=== PATIENT | female | born 1945 | race African-American/Black ===

== ENCOUNTER 2019-11-01 05:03 | Inpatient (IN) | payer MEDICARE ==
[~2019-11-01] VITALS: Ht 170.2 cm; Wt 71.2 kg
[2019-11-01] VITALS (9 sets, daily range): BP systolic 119–156; BP diastolic 80–106
--- NOTE | 2019-11-01 05:05 | NUR ---
ED Nurse Note: PT BROUGHT IN BY RA 34 FROM HOME C/O CHEST PAIN X1DAY. NITRO X2, 325 ASA GIVEN EN ROUTE BY EMS. PT STATES 5/10 SHARP PAIN AND ALSO REPORTS SOME LIGHTHEADEDNESS. AAOX4, AMBULATORY, VSS, NAD. ERMD AT BEDSIDE
[2019-11-01] MEDS ORDERED: ASPIRIN81 M3 PO (05:08)
[2019-11-01] MEDS ORDERED: METOPROLOL SUCC25 MG ORAL (05:08)
[2019-11-01] MEDS ORDERED: LOSARTAN POTASS25 MG ORAL (05:08)
--- NOTE | 2019-11-01 05:10 | NUR ---
ED Nurse Note: IV ESTABLISHED BY EMS VIA LEFT HAND 20G. LINE PATENT AND INTACT. BLOOD DRAWN AND SENT TO LAB
--- NOTE | 2019-11-01 05:14 | Emergency Room Report ---
History of Present Illness General Chief Complaint: Chest Pain Source: Patient Present Illness HPI This is an elderly 74-year-old female with history of high blood pressure. She presents with chief complaint of palpitation and chest pain. Onset all day. She could not sleep tonight because when she lays down she felt short of breath. She also said that her blood pressure was very high in the triple digit and heart rate was racing. She had similar symptoms 8 years ago. She is not currently taking any blood thinner. She also complained of chest pressure and chest pain. Localized to the left chest area. No radiation. No nausea no vomiting. No fever chills. Electrical Systems Design Engineer gave her aspirin and nitroglycerin. She still say that she felt irregular heartbeat and short of breath. I also spoke with the for further information. He said that there is no history of atrial fibrillation. Patient went to [facility] about 3 years ago and was told that she has some scarring or damage to part of her heart. Allergies: Coded Allergies: No Known Allergies (Unverified , 11/01/19) COVID-19 Screening Contact w/high risk pt: No Recent Travel to affected area: No Experienced COVID-19 symptoms?: No Patient History Past Medical History: see triage record, old chart reviewed, HTN Past Surgical History: other Pertinent Family History: none Social History: Denies: smoking Last Menstrual Period: n/a Now: No Reviewed Nursing Documentation: PMH: Agreed; PSxH: Agreed Nursing Documentation-PMH Hx Hypertension: Yes Review of Systems Eye: Denies: eye pain, blurred vision ENT: Denies: ear pain, nose congestion, throat swelling Respiratory: Reports: shortness of breath; Denies: cough Cardiovascular: Reports: chest pain, palpitations Gastrointestinal: Denies: abdominal pain, diarrhea, nausea, vomiting Musculoskeletal: Denies: back pain, joint pain Skin: Denies: rash Neurological: Denies: headache, numbness Endocrine: Denies: increased thirst, increased urine Hematologic/Lymphatic: Denies: easy bruising All Other Systems: negative except mentioned in HPI Physical Exam Vital Signs Date Time Temp Pulse Resp B/P (MAP) Pulse Ox O2 Delivery O2 Flow Rate FiO2 11/01/19 05:00 100 16 186/137 (153) 94 Room Air Vitals with hypertension Sp02 EP Interpretation: reviewed, normal General Appearance: well appearing, no apparent distress, alert Head: normocephalic, atraumatic Eyes: bilateral eye PERRL, bilateral eye EOMI ENT: hearing grossly normal, normal pharynx Neck: full range of motion, supple, no meningismus Respiratory: chest non-tender, normal breath sounds, rales - At the lower bases Cardiovascular #1: no murmur, irregularly irregular Gastrointestinal: normal bowel sounds, non tender, no mass, no organomegaly, no bruit, non-distended Musculoskeletal: back normal, normal range of motion, gait/station normal Psychiatric: mood/affect normal Procedures Critical Care Time Critical Care Time Critical care is mandated in this patient who presented with A. fib and NSTEMI. Patient require my urgent intervention to attenuate the risks of metabolic collapse which may lead to cardiovascular collapse and . Critical care time is 35 minutes excluding any reportable procedure. Critical care time included evaluation, multiple reevaluation, looking at old charts, interpreting laboratory and diagnostic data, discussing case with patient and family and consultants, and charting. Medical Decision Making Diagnostic Impression: Primary Impression: NSTEMI (non-ST elevated myocardial infarction) Additional Impressions: New onset atrial fibrillation Hypertension Qualified Codes: I10 - Essential (primary) hypertension UTI (urinary tract infection) Qualified Codes: N30.00 - Acute cystitis without hematuria CHF (congestive heart failure) Qualified Codes: I50.9 - Heart failure, unspecified ER Course Patient presents with new onset A. fib with chest pain and accelerated hypertension. Troponin is positive. Patient received aspirin and nitro by EMS already. She has no pain here. Lovenox added here. Based on her age and risk factors, will admit for further work-up. EKG Diagnostic Results Rate: normal Rhythm: other - atrial fib ST Segments: other - NSST changes Rhythm Strip Diag. Results EP Interpretation: yes Rate: 98 Rhythm: no PVC's, no ectopy, other - afib Chest X-Ray Diagnostic Results Chest X-Ray Diagnostic Results : Chest X-Ray Ordered: Yes # of Views/Limited/Complete: 1 View Indication: Chest Pain EP Interpretation: Yes Interpretation: no effusion, no pneumothorax, other - CM with mild congestion Impression: Other - CM Electronically Signed by: Donnell Bennett MD Last Vital Signs Date Time Temp Pulse Resp B/P (MAP) Pulse Ox O2 Delivery O2 Flow Rate FiO2 11/01/19 05:00 100 16 186/137 (153) 94 Room Air Status: improved Disposition: ADMITTED INPATIENT Condition: Critical Scripts Furosemide* (LASIX*) 40 Mg Tablet 40 MG ORAL DAILY for 10 Days, #10 TAB Prov: Arthur Fraser MD 11/02/19 Enoxaparin* (LOVENOX*) 80 Mg/0.8 Ml Inj 70 MG SUBQ EVERY 12 HOURS for 10 Days, #20 EA Prov: Arthur Fraser MD 11/02/19 Donnell Bennett MD November 01, 2019 05:14
--- NOTE | 2019-11-01 05:18 | NUR ---
ED Nurse Note: XR AT BEDSIDE
[2019-11-01 05:23] LABS: BASOPHILS % (AUTO) 2.4 % (0.0-2.0); EOSINOPHILS % (AUTO) 1.4 % (0.0-3.0); HEMATOCRIT 39.5 % (37.0-47.0); HEMOGLOBIN 12.9 G/DL (12.0-16.0); LYMPHOCYTES % (AUTO) 35.3 % (20.0-45.0); MEAN CORPUSCULAR VOLUME 85 FL (80-99); MONOCYTES % (AUTO) 9.1 % (1.0-10.0); NEUTROPHILS % (AUTO) 51.8 % (45.0-75.0); PLATELET COUNT 136 K/UL (150-450); RED BLOOD COUNT 4.63 M/UL (4.20-5.40); RED CELL DISTRIBUTION WIDTH 12.7 % (11.6-14.8); WHITE BLOOD COUNT 5.9 K/UL (4.8-10.8)
--- NOTE | 2019-11-01 05:25 | NUR ---
ED Nurse Note: URINE COLLECTED AND SENT TO LAB
[2019-11-01 05:35] LABS: APPEARANCE,URINE CLEAR; BILIRUBIN, URINE NEGATIVE (NEGATIVE); GLUCOSE, URINE (UA) NEGATIVE (NEGATIVE); KETONES,URINE NEGATIVE (NEGATIVE); LEUKOCYTE ESTERASE ,URINE 2+ (NEGATIVE); NITRITE,URINE NEGATIVE (NEGATIVE); PH,URINE 5 (4.5-8.0); PROTEIN,URINE 3+ (NEGATIVE); UROBILINOGEN,URINE NORMAL MG/DL (0.0-1.0)
[2019-11-01 05:36] LABS: COLOR,URINE YELLOW
--- NOTE | 2019-11-01 05:36 | NUR ---
ED Nurse Note: Patient helped in to a gown and belongings placed in a belongings bag.
[2019-11-01 05:38] LABS: ANION GAP 10 mmol/L (5-15); BLOOD UREA NITROGEN 21 mg/dL (7-18); CARBON DIOXIDE 27 MMOL/L (21-32); CHLORIDE 107 MMOL/L (98-107); CREATININE 1.1 MG/DL (0.55-1.30); POTASSIUM 3.6 MMOL/L (3.5-5.1); SODIUM 143 MMOL/L (136-145)
[2019-11-01] MEDS ORDERED: cefTRIAXone 1 GM in NS 55 ML IVPB ONE (05:45)
[2019-11-01 05:48] LABS: ALANINE AMINOTRANSFERASE 63 U/L (12-78); ALBUMIN 3.5 G/DL (3.4-5.0); ALBUMIN/GLOBULIN RATIO 0.8 (1.0-2.7); ALKALINE PHOSPHATASE 95 U/L (46-116); ASPARTATE AMINO TRANSFERASE 76 U/L (15-37); BILIRUBIN,TOTAL 1.1 MG/DL (0.2-1.0)
[2019-11-01 05:51] LABS: INR 1.1 (0.9-1.1)
[2019-11-01 06:08] LABS: BILIRUBIN,DIRECT 0.3 MG/DL (0.0-0.3)
[2019-11-01] MEDS ORDERED: Enoxaparin 60mg Inj SUBQ ONE (06:15)
--- NOTE | 2019-11-01 07:01 | NUR ---
HAND-OFF: Report given to Mariesla ARANDA. Endorsed plan of care.
--- NOTE | 2019-11-01 07:02 | NUR ---
ED Nurse Note: Pt report received from MANOJ Damon. pt shows NAD. vss. iv sites patent and intact.
--- NOTE | 2019-11-01 07:33 | NUR ---
ED Nurse Note: telephone report given to MANOJ carrillo
--- NOTE | 2019-11-01 07:40 | NUR ---
TRANSFER TO FLOOR: Patient transferred to tele as ordered, per ermd. Report given to samaria carirllo. Belongings given pt and receiving nurse.
--- NOTE | 2019-11-01 08:16 | NUR ---
NURSE NOTES: Pt arrived at the unit. Received report from MARY Maria RN. Pt A/Ox4, ambulates steady. Per ER nurse, pt was not tested for covid because pt does not have any respiratory s/sx. Pt breathing even and unlabored in 2L NC, denies any pain or discomfort, no s/sx of acute distress. Tele monitor attached to the pt, vital signs checked (BP 144/97, HR 81, RR 19, 98% O2 sat). Physical assessment performed. Will call Dr Fraser to obtain admission orders.
--- NOTE | 2019-11-01 09:02 | Diagnostic Imaging Report ---
Indication: Shortness of breath Technique: One view of the chest Comparison: none Findings: The heart is enlarged. There is equivocal mild pulmonary venous congestion. No focal airspace consolidation. No definite effusions. Impression: Cardiomegaly. Equivocal mild pulmonary venous congestion. Correlate with clinical findings
--- NOTE | 2019-11-01 09:44 | NUR ---
*-* NO INSURANCE INFORMATION IN THE BAR UNABLE TO SEND CLINICALS OR REVIEWS *-*
--- NOTE | 2019-11-01 10:01 | NUR ---
CASE MANAGEMENT:REVIEW 74 YR OLD FEMALE BIBA FROM HOME CC: CHEST PAIN AND LIGHTHEADEDNESS SI: NEW AFIB. CHF. NSTEMI. UTI 98.5 100 16 186/137 94% ON RA TROPONIN(+) 8.925 BNP+3454 IS: ASA PO GIVEN POWER SHOVEL MECHANIC NITRO GIVEN POWER SHOVEL MECHANIC PLACED ON 2L/NC IV LASIX X1 LOVENOX SQ X1 IV HYDRALAZINE X1 IV ROCEPHIN X1 CHEST XRAY : TO TELEMETRY UNIT
--- NOTE | 2019-11-01 10:15 | NUR ---
NURSE NOTES: Left a voice message to Dr Fraser's office to get admission order. Awaiting for a call back.
--- NOTE | 2019-11-01 10:30 | NUR ---
NURSE NOTES: Dr Fraser came to see the pt. Per MD, order cardiac diet for the pt and MD will add the rest of the orders in. Addendum: 11/01/19 at 1322 by Porsha Rod RN Called Dr Fraser to remind him about the admission orders. No answer, left a voicemail. Awaiting for a callback.
--- NOTE | 2019-11-01 14:20 | NUR ---
NURSE NOTES: Recvd a call from a Dr Anguiano from [facility], Md Fraser and Martha have been in contact with Dr Anguiano to have the patient sent to cardiac cath once bed is available. Case Management/Insurance called for Dr Anguiano inquiring patient isolation and bed size. Pt can be discharged anytime a bed is available to cardiac cath hospital...
[2019-11-01] MEDS: Furosemide 40mg tab ORAL SCH (14:42)
--- NOTE | 2019-11-01 15:59 | NUR ---
*-* INSURANCE *-* ALL CLINICALS AND REVIEWS HAVE BEEN FAXED TO: [facility] JOSE FRANCISCO:DAVID [phone] FAX [phone] Work
[2019-11-01] MEDS ORDERED: Metoprolol Tartrate 5mg/5ml Inj IVP SCH (16:10)
[2019-11-01] MEDS ORDERED: Metoprolol Tartrate 50mg tab ORAL SCH (16:21)
--- NOTE | 2019-11-01 16:22 | NUR ---
DISCHARGE PLANNING- PATIENT NEEDS TO BE TRANSFERRED FOR HIGHER LEVEL OF CARE CALLED HCP @ T: [phone] SPOKE WITH MUSIC PUBLICIST MERLY REGARDING TRANSFER PER MERLY HER SUPERVISORY LIFEGUARD WILL BE CONTACTED REGARDING THE TRANSFER AT [place] AN MD TO MD CONVERSATION WILL NEED TO TAKE PLACE PROVIDED NUMBERS FOR NURSES STATION, DR VARELA AND DR HOPE
--- NOTE | 2019-11-01 16:38 | NUR ---
INSTRUMENT AND CONTROL SERVICE PERSON NOTE CALL RECEIVED FROM MERLY RUBIN WITH HCP TO PROVIDE AFTER HOURS PHONE NUMBER [phone] INFORMED THIS CM THAT THEY WILL CONTINUE TO WORK ON TRANSFERRING PATIENT TO HIGHER LEVEL OF CARE ONCE THEY SECURE AN ACCEPTING HOSPITAL. HCP WILL CONTACT TELE UNIT WHEN TRANSFER HAS BEEN COORDINATED.
[2019-11-01] MEDS: Aspirin EC 325mg tab ORAL SCH (17:22)
[2019-11-01] MEDS: Nitroglycerin 2% oint pkt TOPIC SCH (17:23)
--- NOTE | 2019-11-01 19:58 | NUR ---
HAND-OFF: Report given to MANOJ Carr. Pt in stable condition, endorsed plan of care. Endorsed recently added medication that is due (K-Chloride). Per RN, she will administer it.
--- NOTE | 2019-11-01 20:00 | NUR ---
NURSE NOTES: Received report and endorsement of care from Porsha Morales RN. Pt in stable condition, denies pain. No signs or symptoms of distress noted at this time. Will continue plan of care and monitor closely.
[2019-11-01] MEDS: Enoxaparin 80mg Inj SUBQ SCH (21:00)
[2019-11-01] MEDS ORDERED: Heparin 5000 units/ml inj SUBQ SCH (21:00)
--- NOTE | 2019-11-01 21:29 | History and Physical Report ---
DATE OF ADMISSION: 11/01/2019 HISTORY OF PRESENT ILLNESS: This is a very pleasant 74-year-old female who came to the emergency room early this morning with complaints of chest pain. Patient reports that she is having chest pain for the last 24 hours and at that time, the pain seems to have decreased. Patient was seen and worked up in the ER, found to have elevated troponin. She was also found to have pulmonary edema. She is admitted to the hospital for subsequent management and care. Patient reports a chronic history of atrial fibrillation and hypertension. She states that she has had a cardiac stress test more than 10 years ago. ALLERGIES: None. HOME MEDICATIONS: Include metoprolol, losartan, and aspirin. She is not on a blood thinner. SURGERIES: None reported. REVIEW OF SYSTEMS: Denies any headaches, hematemesis, melena, hematochezia, or weight loss. SOCIAL HISTORY: None. PHYSICAL EXAMINATION: GENERAL: Reveals a 74-year-old female. HEENT: Unremarkable. LUNGS: Clear breath sounds bilaterally. ABDOMEN: Soft. NEUROLOGIC: Nonfocal. VITAL SIGNS: Blood pressure is 130/80, heart rate is 104, respirations 18, O2 saturation 98% on 2 L of oxygen. LABORATORY DATA: Lab testing shows chemistry notable for troponin 8.9. Otherwise, remainder of laboratories are unremarkable. Urinalysis negative. IMAGING STUDIES: X-ray chest obtained, which shows cardiomegaly with questionable mild pulmonary edema. EKG shows normal sinus rhythm. IMPRESSION: 1. Mild pulmonary edema. 2. AFib with RVR. 3. Elevated troponin. PLAN: Admit to the hospital. Check serial troponins. Rate control. Cardiac consultation. Serial troponins. Cardiac diet. May need cardiac catheterization at some point in the near future. We will also diurese. Arthur Fraser M.D. DR: KASSY JOB#: [id number] CC:
[2019-11-01] MEDS: Metoprolol Tartrate 50mg tab ORAL SCH (22:09)
[2019-11-02] VITALS: BP 132/91
--- NOTE | 2019-11-02 01:44 | Consultation ---
DATE OF CONSULTATION: 11/01/2019 CARDIOLOGY CONSULTATION Critical Care 80mins CONSULTING PHYSICIAN: Ruddy Thomas MD. REFERRING PHYSICIAN: Arthur Fraser MD. REASON: Elevated troponin level. HISTORY OF PRESENT ILLNESS: This is a 74-year-old female. She has a history of chronic atrial fibrillation and hypertension. She has been stable on medical therapy for over 8 years. She stated last night that she started feeling short of breath and chest pressure. Symptoms were unprovoked. No other constitutional symptoms were noted. She took an extra dose of her medication, metoprolol, but did not feel better. She came to the hospital emergency room. Her electrocardiogram revealed atrial fibrillation with nonspecific ST-T wave changes. Troponin level was 8.9. Hospitalization was initiated. Patient notes that her chest pain resolved soon after admission. The patient states that at she had a cardiac catheterization at [facility] approximately 8 years ago and at that time no intervention was recommended. The patient has atrial fibrillation, but does not take anticoagulant therapy and does not know why she was not prescribed them. She denies any history of bleeding problems. PAST MEDICAL HISTORY: As noted above. ALLERGIES: None. MEDICATIONS: Reviewed. SOCIAL HISTORY: Negative for smoking, alcohol, or substance abuse. REVIEW OF SYSTEMS: A 10-point review of systems performed. All systems negative other than noted above. PHYSICAL EXAMINATION: VITAL SIGNS: Her initial blood pressure in the emergency room was 186/137, heart rate 100, and respiratory rate 16. Presently at the time of my evaluation blood pressure 141/93, heart rate 113, respiratory rate 20. Monitored rhythm atrial fibrillation. NECK: Jugular venous pressure normal. LUNGS: With no wheezing or rales. CARDIAC: Irregularly irregular. Normal S1, S2. Point of maximum impulse sustained. A 1/6 systolic murmur at apex. ABDOMEN: Soft. EXTREMITIES: No edema. LABORATORY DATA: BUN 21, creatinine 1.1, potassium 3.6. Troponin #1 8.9. Troponin #2 6.8. Pro natriuretic peptide is 3454. White count 5.9, hemoglobin 12.9. Chest x-ray revealed mild pulmonary venous congestion and cardiomegaly. Echocardiogram revealed global hypokinesis with ejection fraction of approximately 45% with mild mitral regurgitation (preliminary report). IMPRESSION: 1. Acute myocardial infarction. 2. Acute on chronic diastolic congestive heart failure. 3. Atrial fibrillation, chronic and rate controlled. 4. Hypertensive heart disease with elevated blood pressure range. PLAN: 1. Full anticoagulation with subcutaneous Lovenox. 2. Advance beta-fazal. 3. Cautious diuresis. 4. Replace potassium. 5. Topical nitrates. 6. We will arrange transfer to higher level of care for coronary angiography. 20 mins spent contacting MD at contracted facility to discuss patient's status and need for transfer to a higher level of care. Ruddy Thomas M.D. DR: FRANK JOB#: [id number] CC: TOMER
[2019-11-02 04:00] VITALS: BP 135/90
[2019-11-02] MEDS: Nitroglycerin 2% oint pkt TOPIC SCH ×2 (06:08→13:01)
--- NOTE | 2019-11-02 07:36 | NUR ---
HAND-OFF: Report given to Gretel Shafer RN. Pt in stable condition. No signs or symptoms of distress noted at this time.
--- NOTE | 2019-11-02 07:37 | NUR ---
NURSE NOTES: Received patient in bed awake. O2 via NC placed back on patient, no SOB or acute distress. IV lines intact and patent. HOB elevated. Bed locked in lowest position. Call light within reach. Will continue plan of care.
[2019-11-02 08:00] VITALS: BP 158/94
[2019-11-02] MEDS: Furosemide 40mg tab ORAL SCH (08:52)
[2019-11-02] MEDS: Aspirin EC 325mg tab ORAL SCH (08:55)
[2019-11-02] MEDS: Metoprolol Tartrate 50mg tab ORAL SCH (08:55)
[2019-11-02] MEDS: Enoxaparin 80mg Inj SUBQ SCH (08:57)
[2019-11-02] MEDS ORDERED: Losartan 50mg tab ORAL SCH ×2 (09:00)
[2019-11-02] MEDS ORDERED: Aspirin EC 325mg tab ORAL SCH (09:00)
[2019-11-02 09:55] LABS: ANION GAP 10 mmol/L (5-15); BLOOD UREA NITROGEN 21 mg/dL (7-18); CALCIUM 9.2 MG/DL (8.5-10.1); CARBON DIOXIDE 27 MMOL/L (21-32); CHLORIDE 110 MMOL/L (98-107); SODIUM 146 MMOL/L (136-145)
--- NOTE | 2019-11-02 11:27 | Pulmonology Progress Note ---
Subjective Interval Events: Chest pain free; feelin better Constitutional: Reports: no symptoms HEENT: Repors: no symptoms Respiratory: Reports: no symptoms Cardiovascular: Reports: no symptoms Gastrointestinal/Abdominal: Reports: no symptoms Genitourinary: Reports: no symptoms Allergies: Coded Allergies: No Known Allergies (Unverified , 11/01/19) Objective Last 24 Hour Vital Signs Date Time Temp Pulse Resp B/P (MAP) Pulse Ox O2 Delivery O2 Flow Rate FiO2 11/02/19 09:26 111 11/02/19 08:55 158/94 11/02/19 08:55 118 158/94 11/02/19 08:00 97.2 118 16 158/94 (115) 98 11/02/19 06:08 135/90 11/02/19 04:00 98.1 98 19 135/90 (105) 98 11/02/19 04:00 96 11/02/19 00:00 85 11/02/19 00:00 97.7 99 19 132/91 (105) 96 11/01/19 22:09 91 149/100 11/01/19 21:00 Nasal Cannula 2.0 11/01/19 20:00 98.2 91 19 149/100 (116) 95 11/01/19 20:00 90 11/01/19 17:23 141/93 11/01/19 17:22 113 141/93 11/01/19 16:00 98.2 113 20 141/93 (109) 98 11/01/19 15:45 99 11/01/19 12:28 93 11/01/19 12:00 97.7 106 19 130/80 (97) 98 Intake and Output 11/01/19 11/02/19 19:00 07:00 Output Total 0 ml Balance 0 ml Output Urine Total 0 ml # Voids 2 General Appearance: no acute distress HEENT: normocephalic Respiratory/Chest: chest wall non-tender, lungs clear Cardiovascular: normal peripheral pulses, normal rate Abdomen: normal bowel sounds Laboratory Tests 11/01/19 17:13: Troponin I 6.872H 11/02/19 05:55: Troponin I 4.917H, Sodium Level 146H, Potassium Level 4.0, Chloride Level 110H, Carbon Dioxide Level 27, Anion Gap 10, Blood Urea Nitrogen 21H, Creatinine 1.0, Estimat Glomerular Filtration Rate > 60, Glucose Level 97, Calcium Level 9.2, Magnesium Level 2.0, Thyroid Stimulating Hormone (TSH) 0.460 Current Medications Medications (Trade) Dose Ordered Sig/Goran Route PRN Reason Start Time Stop Time Status Last Admin Dose Admin Acetaminophen (Tylenol) 650 mg Q4H PRN ORAL Mild Pain (Pain Scale 1-3) 11/01/19 14:15 12/01/19 14:14 11/01/19 23:37 Aspirin (Ecotrin) 325 mg DAILY ORAL 11/01/19 16:15 12/16/19 16:14 11/02/19 08:55 Dextrose (Dextrose 50%) 25 ml Q30M PRN IV Hypoglycemia 11/01/19 14:15 01/30/20 14:14 Dextrose (Dextrose 50%) 50 ml Q30M PRN IV Hypoglycemia 11/01/19 14:15 01/30/20 14:14 Enoxaparin Sodium (Lovenox) 70 mg EVERY 12 HOURS SUBQ 11/01/19 21:00 01/30/20 20:59 11/01/19 21:00 Furosemide (Lasix) 40 mg DAILY ORAL 11/01/19 14:30 12/01/19 14:29 11/02/19 08:52 Losartan Potassium (Cozaar) 100 mg DAILY ORAL 11/02/19 09:00 12/02/19 08:59 11/02/19 08:55 Metoprolol Tartrate (Lopressor) 50 mg EVERY 12 HOURS ORAL 11/01/19 21:00 01/30/20 20:59 11/02/19 08:55 Nitroglycerin (Nitro-Bid) 1 inch TID@0600,1200,1800 TOPIC 11/01/19 18:00 12/01/19 17:59 11/02/19 06:08 Assessment/Plan Assessment/Plan IMPRESSION: 1. Mild pulmonary edema. 2. AFib with RVR. 3. Elevated troponin. PLAN: A Seen by cardiology Troponin trending down Rate control. Cardiac consultation noted. Cardiac diet. Will transfer to [facility] Will need cardiac catheterization Continue diurese. Dayday Yuenzi,Arthur Martin MD November 02, 2019 11:27
[2019-11-02] MEDS ORDERED: FUROSEMIDE40 MG ORAL (11:29)
[2019-11-02] MEDS ORDERED: LOVENOX10 M2 SUBQ (11:29)
[2019-11-02 12:00] VITALS: BP 148/96
[2019-11-02 16:00] VITALS: BP 144/105
--- NOTE | 2019-11-02 17:36 | NUR ---
NURSE NOTES: Patient for transfer to [facility] for cardiac catheterization. Report given to Nancy. ID band removed. IV lines kept intact. Tele box removed. Belongings accounted for. No new skin issues noted. Discharge instructions given, verbalized understanding. Transported via ambulance in stable condition.
[2019-11-02] MEDS ORDERED: Metoprolol Tartrate 50mg tab ORAL SCH (21:00)
--- NOTE | 2019-11-03 00:29 | Progress Note ---
CARDIOLOGY Critical Care 50 mins DATE: 11/02/2019 SUBJECTIVE: The patient has had no episodes of recurring chest pain since admission yesterday afternoon. She does feel somewhat SOB. Monitored rhythm remains atrial fibrillation, mostly rate controlled. Occasional PVC's noted. EKG reveals no acute ST-T wave changes. OBJECTIVE: VITAL SIGNS: Blood pressure 148/96, heart rate 90, respiratory 16. LUNGS: Bilateral breath sounds. CARDIAC: Irregularly irregular rhythm. Normal S1, S2. ABDOMEN: Soft. EXTREMITIES: There is no edema. Troponin down to 4.9, potassium 4, sodium 146, bicarb 27, BUN 21, creatinine 1, lipid panel pending. IMPRESSION: 1. Acute myocardial infarction, erf-LW-bledilmmi type. 2. Chronic atrial fibrillation, mostly rate controlled, with ventricular ectopy. 3. Hypertensive heart disease with elevated blood pressure range at this time. PLAN: Continue anti-platelet and anticoagulant therapies. Advance antihypertensive regimen. Maintenance diuretic dosing. Continue current anti-anginal regimen. Critical care transfer arrangements are in progress to a higher level of care for coronary angiography and assessment of coronary anatomy. 15 mins spent again contacting receiving facility to update on patient's condition and need for transfer to higher level of care. Ruddy Thomas M.D. DR: ADEOLA JOB#: [id number] CC: TOMER
--- NOTE | 2019-11-04 11:50 | NUR ---
*-* INSURANCE *-* UPDATED CLINICALS HAVE BEEN FAXED NO D/C SUMMARY IN THE SYSTEM: [facility] JULISAM:DAVID [phone] FAX [phone] Work Addendum: 11/05/19 at 1104 by ROGER RICE [facility] Ref# [id number] ph#[phone] fax#[phone]
--- NOTE | 2019-11-05 13:32 | Discharge Summary ---
Discharge Summary Discharge Summary _ DATE OF ADMISSION: 11/01/2019 DATE OF DISCHARGE: [11/02/2019] DISCHARGED BY: Dr. Fraser REASON FOR ADMISSION: 74 years old female with past medical history of hypertension , presented with chief complaint of chest pain and palpitations for 1 day. Patient was unable to sleep because she was unable to lie down and felt short of breath. Patient reported very high blood pressure . She also felt like her heart was racing. Patient reported similar symptoms 8 years ago. Patient was not on any blood thinner medication. Chest pain reported to be pressure-like, localized to the left chest area , without radiation. No fever or chills. No nausea or vomiting. En route to the hospital patient received aspirin and nitroglycerin. Upon evaluation blood pressure was 196/137. Chest x-ray revealed cardiomegaly with mild congestion Troponin 8.925 ,pro BNP 3454 . Stable renal parameters and electrolytes. EKG revealed atrial fibrillation with heart rate of 98 / Patient started on Lovenox and admitted to telemetry floor for further management. CONSULTANTS: membership correspondent [facility] COURSE: Patient admitted to telemetry floor. Lead Game Designer followed. Echocardiogram revealed global left ventricular hypokinesis with estimated left ventricular ejection fraction of 45%. Mild left ventricular hypertrophy . Moderate aortic regurgitation and severe mitral regurgitation. Right ventricular systolic pressure of 49 consistent with a moderate pulmonary hypertension. Patient was on full anticoagulation with Lovenox. Beta-blockade provided. Patient started on cautious diuresis. Potassium was replaced. Topical nitrates provided. Antianginal regimen continued. Blood pressure was managed with beta fazal and angiotensin receptor fazal. Blood pressure improved. Troponin trending down; last troponin 4.917. Supplemental oxygen provided and titrated to keep pulse oximetry above 90%. Pulse oximetry remained stable on 2 L of oxygen via nasal cannula. TSH within normal range. Transfer was arranged to higher level of care for coronary angiogram. Per insurance, patient was transferred to [facility] for cardiac catheterization. FINAL DIAGNOSES: Acute myocardial infarction/NSTEMI Acute on chronic diastolic congestive heart failure Atrial fibrillation Hypertensive heart disease with initial hypertensive urgency DISCHARGE MEDICATIONS: See Medication Reconciliation list. DISCHARGE INSTRUCTIONS: Patient was transferred to [facility] for cardiac catheterization. I have been assigned to dictate discharge summary for this account. I was not involved in the patient's management. Tessa Hutchins NP November 05, 2019 13:32
--- NOTE | 2019-11-05 14:18 | NUR ---
*-* INSURANCE *-* DISCHARGE SUMMARY HAS BEEN FAXED TO: [facility] JOSE FRANCISCO:DAVID Ref# [id number] ph#[phone] fax#[phone]
== END 2019-11-02 17:49 | disposition short-term general hospital (02) | DRG 280 ==
LOC: EDBD 05:03 → EMR 05:23 → EDBEDREQ 05:30 → 2E 05:59 → EDBEDREQ 06:04 → 2E 23:40
DX: I21.4 Non-ST elevation (NSTEMI) myocardial infarction (principal); I50.33 Acute on chronic diastolic (congestive) heart failure; I48.20 Chronic atrial fibrillation, unspecified; I48.91 Unspecified atrial fibrillation; I11.0 Hypertensive heart disease with heart failure; I27.20 Pulmonary hypertension, unspecified; I35.1 Nonrheumatic aortic (valve) insufficiency; I34.0 Nonrheumatic mitral (valve) insufficiency; I16.0 Hypertensive urgency
CPT/HCPCS: 36415; 71045; 80048; 80053; 81003; 82248; 83735; 83880; 84443; 84484; 85025; 85610; 85730; 93005; 93306; 96365; 96375; 99291; J8499